=== PATIENT | female | born 1960 | race Two or more races ===

== ENCOUNTER 2019-11-24 11:50 | Emergency (ER) | payer OTHER ==
[~2019-11-24] VITALS: Ht 160 cm; Wt 61.2 kg
[2019-11-24] MEDS ORDERED: TOPROL XL50 M1 (11:57)
== END 2019-11-24 21:40 | disposition home or self-care (01) ==
LOC: ER 11:50
DX: R16.1 Splenomegaly, not elsewhere classified (principal); R10.2 Pelvic and perineal pain; Z03.818 Encounter for observation for suspected exposure to other biological agents ruled out; R00.0 Tachycardia, unspecified

== ENCOUNTER 2020-10-01 11:25 | Inpatient (IN) | payer OTHER ==
[~2020-10-01] VITALS: Ht 160 cm; Wt 69.4 kg
[~2020-10-01 11:25] MED LIST: TOPROL XL50 M1
[2020-10-01] MEDS ORDERED: RAYOS5 MG PO (16:55)
[2020-10-01] MEDS ORDERED: METOPROLOL TART50 MG PO (16:55)
== END 2020-10-11 21:00 | disposition home or self-care (01) | DRG 177 ==
LOC: ER 11:25 → MEDJ 17:28
PROVIDERS: ADMIT Internal Medicine; ATTEND Internal Medicine
PROC: 8E0ZXY6 Isolation (ICD-10-PCS; principal; 2020-10-01)
PROC: XW033E5 Introduction of Remdesivir Anti-infective into Peripheral Vein, Percutaneous Approach, New Technology Group 5 (ICD-10-PCS; 2020-10-01)
PROC: 4A033R1 Measurement of Arterial Saturation, Peripheral, Percutaneous Approach (ICD-10-PCS; 2020-10-01)
PROC: 3E0F7SF Introduction of Other Gas into Respiratory Tract, Via Natural or Artificial Opening (ICD-10-PCS; 2020-10-01)
PROC: XW033E5 Introduction of Remdesivir Anti-infective into Peripheral Vein, Percutaneous Approach, New Technology Group 5 (ICD-10-PCS; 2020-10-02)
PROC: 3E0F7GC Introduction of Other Therapeutic Substance into Respiratory Tract, Via Natural or Artificial Opening (ICD-10-PCS; 2020-10-02)
DX: U07.1 COVID-19 (principal); J12.82 Pneumonia due to coronavirus disease 2019; J80 Acute respiratory distress syndrome; C81.77 Other Hodgkin lymphoma, spleen; I49.9 Cardiac arrhythmia, unspecified; R10.2 Pelvic and perineal pain